=== PATIENT | male | born 1990 | race Caucasian/White ===

== ENCOUNTER 2017-09-27 21:24 | Emergency (ER) | payer OTHER ==
[2017-09-27 22:18] LABS: HEMATOCRIT 42.1 % (42.0-52.0); HEMOGLOBIN 14.3 g/dL (13.5-18.0); MEAN CELL VOLUME 91 fl (78-100); MEAN CORPUSCULAR HEMOGLOBIN 31 pg (27-31); MEAN CORPUSCULAR HGB CONC 34 g/dL (33-37); PLATELET COUNT 209 K/mm3 (130-400); RED BLOOD COUNT 4.63 M/mm3 (4.20-5.60); RED CELL DISTRIBUTION WIDTH 12.5 % (11.5-14.5); WHITE BLOOD COUNT 10.7 K/mm3 (4.8-10.8)
[2017-09-27 22:27] LABS: LYMPHOCYTE 17 % (20-51); MONOCYTE 13 % (3-10); NEUTROPHILS 68 % (42-75)
[2017-09-27 22:30] LABS: ALBUMIN 3.8 g/dL (3.5-5.0); BUN/CREATININE RATIO 13.7 (6.0-26.0); CALCIUM 8.5 mg/dL (8.4-10.2); POTASSIUM 4.2 mmol/L (3.6-5.0); TOTAL BILIRUBIN 0.3 mg/dL (0.2-1.3); TOTAL PROTEIN 7.3 g/dL (6.3-8.2)
[2017-09-27 22:31] LABS: URINE COLOR YELLOW
[2017-09-27 22:32] LABS: URINE APPEARANCE CLEAR; URINE BILIRUBIN NEGATIVE (NEGATIVE); URINE BLOOD 50 ery/uL (NEGATIVE); URINE GLUCOSE NEGATIVE (NEGATIVE); URINE KETONE NEGATIVE (NEGATIVE); URINE LEUKOCYTE ESTERASE 1+ (NEGATIVE); URINE NITRATE NEGATIVE (NEGATIVE); URINE PROTEIN(semi-quant) TRACE mg/dL (NEGATIVE); URINE UROBILINOGEN NORMAL (NORMAL)
[2017-09-28] MEDS ORDERED: CIPRO500 M1 PO (00:02)
[2017-09-28 00:10] VITALS: BP 133/85
== END 2017-09-28 00:10 | disposition home or self-care (01) ==
LOC: ED 21:24
PROVIDERS: Nurse Practitioner Primary Care
DX: K52.9 Noninfective gastroenteritis and colitis, unspecified (principal); N39.0 Urinary tract infection, site not specified; Z87.442 Personal history of urinary calculi
CPT/HCPCS: J1885; J7030; Q9967

== ENCOUNTER → 2018-02-28 | Outpatient (CLI) | payer OTHER ==
[~2018-02-28] MED LIST: CIPRO500 M1 PO
== END ==
LOC: RAD 17:00
DX: M24.012 Loose body in left shoulder (principal)

== ENCOUNTER → 2019-11-23 | Outpatient (CLI) | payer SELFPAY | LOC: LAB 08:02 | DX: Z20.828 Contact with and (suspected) exposure to other viral communicable diseases (principal) ==

== ENCOUNTER 2020-11-09 11:25 | Emergency (ER) | payer BC ==
[~2020-11-09] VITALS: Ht 177.8 cm; Wt 90.5 kg
[2020-11-09 12:48] VITALS: BP 138/108
[2020-11-09] MEDS ORDERED: CEPHALEXIN500 M1 PO (12:51)
== END 2020-11-09 12:56 | disposition home or self-care (01) ==
LOC: ED 11:25
DX: S11.91XA Laceration without foreign body of unspecified part of neck, initial encounter (principal); S50.311A Abrasion of right elbow, initial encounter; Z23 Encounter for immunization; F17.210 Nicotine dependence, cigarettes, uncomplicated; W10.9XXA Fall (on) (from) unspecified stairs and steps, initial encounter; Y92.009 Unspecified place in unspecified non-institutional (private) residence as the place of occurrence of the external cause
CPT/HCPCS: 90715; J0696

== ENCOUNTER → 2021-04-29 | Outpatient (CLI) | payer BC ==
[~2021-04-29] MED LIST changes: +CEPHALEXIN500 M1 PO
[2021-04-29 18:00] LABS: BASO # 0.02 K/mm3 (0.02-0.10); EOS % 1.2 % (0.0-4.0); HEMATOCRIT 48.6 % (42.0-52.0); HEMOGLOBIN 16.7 g/dL (13.5-18.0); LYMPH# 2.19 K/mm3 (1.50-4.00); MEAN CELL VOLUME 92 fl (78-100); MEAN CORPUSCULAR HEMOGLOBIN 32 pg (27-31); MEAN CORPUSCULAR HGB CONC 34 g/dL (33-37); MEAN PLATELET VOLUME 8.8 fl (7.4-10.4); MONO # 0.77 K/mm3 (0.20-0.80); NEU # 5.02 K/mm3 (1.40-6.50); PLATELET COUNT 270 K/mm3 (130-400); RED BLOOD COUNT 5.28 M/mm3 (4.20-5.60); RED CELL DISTRIBUTION WIDTH 12.2 % (11.5-14.5); WHITE BLOOD COUNT 8.1 K/mm3 (4.8-10.8)
[2021-04-29 18:08] LABS: ALBUMIN 4.8 g/dL (3.5-5.0); POTASSIUM 4.3 mmol/L (3.5-5.1)
[2021-04-29 18:10] LABS: CALCIUM 9.7 mg/dL (8.3-10.5)
[2021-04-29 18:11] LABS: TOTAL PROTEIN 7.9 g/dL (6.4-8.3)
[2021-04-29 18:11] LABS: URINE APPEARANCE CLEAR; URINE COLOR LT YELLOW
[2021-04-29 18:12] LABS: PH-URINE 5.5 (5.0 - 8.0); URINE BILIRUBIN NEGATIVE (NEGATIVE); URINE GLUCOSE NEGATIVE (NEGATIVE); URINE KETONE NEGATIVE (NEGATIVE); URINE LEUKOCYTE ESTERASE NEGATIVE (NEGATIVE); URINE NITRATE NEGATIVE (NEGATIVE); URINE PROTEIN(semi-quant) TRACE (NEGATIVE); URINE UROBILINOGEN NORMAL (NORMAL); URINE WBC 0-1 /hpf (0-3)
[2021-04-29 18:12] LABS: TOTAL BILIRUBIN 0.4 mg/dL (0.2-1.2)
[2021-04-30 11:40] LABS: URINE BLOOD NEGATIVE (NEGATIVE)
== END ==
LOC: LAB 17:35
PROVIDERS: Nurse Practitioner Family
DX: R10.30 Lower abdominal pain, unspecified (principal); M54.50 Low back pain, unspecified; R30.9 Painful micturition, unspecified

== ENCOUNTER 2021-10-02 17:32 | Emergency (ER) | payer BC ==
[~2021-10-02] VITALS: Ht 177.8 cm; Wt 90.9 kg
[2021-10-02 18:44] VITALS: BP 130/83
== END 2021-10-02 18:24 | disposition home or self-care (01) ==
LOC: ED 17:32
DX: S61.411A Laceration without foreign body of right hand, initial encounter (principal); F17.210 Nicotine dependence, cigarettes, uncomplicated; Z28.310 Unvaccinated for COVID-19; W26.8XXA Contact with other sharp object(s), not elsewhere classified, initial encounter

== ENCOUNTER 2021-11-25 07:44 | Emergency (ER) | payer BC ==
[2021-11-25 07:53] VITALS: BP 140/96
[2021-11-25] MEDS ORDERED: BENZONATATE200 MG PO (08:32)
[2021-11-25] MEDS ORDERED: VIBRAMYCIN HYC100 MG PO (08:32)
== END 2021-11-25 08:35 | disposition home or self-care (01) ==
LOC: ED 07:44
DX: J06.9 Acute upper respiratory infection, unspecified (principal); F17.210 Nicotine dependence, cigarettes, uncomplicated; Z28.310 Unvaccinated for COVID-19